=== PATIENT | female | born 1950 | race American Indian/Alaskan Native ===

== ENCOUNTER 2017-06-26 06:14 | Day surgery (SDC) | payer OTHER ==
[2017-06-23 08:39] VITALS: BMI 33.4
[2017-06-26] MEDS ORDERED: Lactated Ringer's 1,000 ML IV ONE (07:01)
--- NOTE | 2017-06-26 07:08 | CP.SDSHP ---
Same Day Surgery H & P - History Proposed Procedure: Right shoulder arthroscopy, possible rotator cuff tear Pre-Op Diagnosis: Right shoulder rotator cuff tear, early DJD GH joint - Previous Medical/Surgical History Cardiac: Hypertension Comments: GERD. medical H&P on chart Dr. Díaz, reviewed, moderate risk Previous Surgical History: colonoscopy, right buttock cyst excision - Allergies Allergies: Allergies No Known Allergies Allergy (Verified 06/23/17 08:38) - Physical Exam Vital Signs: Vital Signs 06/26/17 06/26/17 06:41 06:43 Temperature 98.5 F Pulse Rate 94 H 94 H Respiratory 20 Rate Blood Pressure 129/76 O2 Sat by Pulse 100 Oximetry - {Optional Preform as Required} Ortho: Other (sig limited AROM of right shoulder, sensation intact, +TTP, + radial pulse) Other Pertinent Findings: MRI R shoulder on chart: Moderate tendinosis of the supraspinatous, infra, subscap, partial thickness tear of supra and infraspinatous, traction cystic changes, early DJD glenohumeral joint - Impression Impression: 67F RHD NKDA failed conservative mgmt for right shoulder arthroscopy possible rotator cuff repair Pt. Evaluated Today:Candidate for Anesthesia & Procedure: Yes Short Stay Discharge - Short Stay Discharge Admitting Diagnosis/Reason for Visit: M75.111 Disposition: HOME/ ROUTINE Referrals: Florentino Shah III, MD [Primary Care Provider] -
[2017-06-26] MEDS ORDERED: Propofol 10 mg/ml Inj (20 ML) ONE (07:27)
[2017-06-26] MEDS ORDERED: Midazolam 2 MG/2 ML VIAL ONE (07:28)
[2017-06-26] MEDS ORDERED: Etomidate 20 mg/10ml Inj IV ONE (07:28)
[2017-06-26] MEDS ORDERED: Succinylcholine 200 mg/10 ml Inj IV ONE (07:28)
[2017-06-26] MEDS ORDERED: Lidocaine 4% (Laryng-O-Jet) Kit MM ONE (07:28)
[2017-06-26] MEDS ORDERED: Ropivacaine 0.5% 30ML IV ONE (07:34)
[2017-06-26] MEDS ORDERED: Lidocaine 1% Inj (20ml) ONE (07:42)
[2017-06-26] MEDS ORDERED: Rocuronium 10 mg/ml (5 ml) ONE (08:21)
[2017-06-26] MEDS ORDERED: Sodium Chloride 0.9% 200 ML IV ONE ×2 (08:30)
[2017-06-26] MEDS ORDERED: ePHEDrine 50 mg/ml Inj ONE (08:54)
[2017-06-26] MEDS ORDERED: SODIUM CHLORIDE IV ONE ×2 (09:00→09:10)
[2017-06-26] MEDS ORDERED: EPINEPHRINE IV ONE ×2 (09:00→09:10)
[2017-06-26] MEDS ORDERED: methylPREDNISolone Depo 80 mg/ml Inj ONE (10:05)
[2017-06-26] MEDS ORDERED: Neostigmine Methylsulfate 2 MG/2 ML ML IV ONE (10:11)
[2017-06-26] MEDS ORDERED: Sodium Chloride 0.9% 500 ML IV ONE (10:15)
--- NOTE | 2017-06-26 10:36 | PCM.ANESB1 ---
Interscalene Block - Brachial Plexus Date of Procedure: 06/26/17 Anesthesiologist: Randall Pre-Procedure Diagnosis: Right labral tear Post-Procedure Diagnosis: Same Procedure Performed: Interscalene Block of Brachial Plexus Right - Procedure Interscalene Block of Brachial Plexus: This procedure was explained to the patient that it is for post-operative pain management. Consent was obtained after a thorough discussion with the patient regarding the benefits and possible complications of local anesthetic block of the Brachial Plexus at the Interscalene area. The patient was brought to the Operating Room and standard monitors were applied. Time out was held with the circulating nurse to confirm the correct surgery and appropriate block. After applying Oxygen by nasal cannula and administering IV Sedation, the patient's head was gently rotated away from the ___right___operative shoulder and the anterior scalene groove was carefully palpated. The ultrasound transducer was then applied to the skin in the transverse plane and the brachial plexus was visualized lateral to the carotid artery and in between the anterior and middle scalene muscles. After identification,the anterior lateral portion of the neck was prepped with Betadine solution three times and Lidocaine 1% was injected subcutaneously for topical analgesia. At this point, a # 22 gauge Stimuplex 2 inches insulated needle was inserted into the interscalene groove and directed in a caudal and midline direction. The needle was inserted lateral to the ultrasound transducer in-plane towards the brachial plexus in a [id number] direction. Needle advancement was performed carefully under direct ultrasound visualization. Nerve stimulator was used and twitched of the affected extremity including the hand brachialis muscles, biceps and the deltoid was obtained at a current of __0.4___MA. After repeated negative aspiration,__20___cc of__.5%___, ropivacaine were injected. Under ultrasound guidance the local anesthetics were observed surrounding the roots of the brachial plexus. The needle was removed intact and sterile dressing was applied. The patient had stable vital signs, was conscious and in no apparent distress. The patient tolerated the interscalene block of the bracheal plexus well with stable vital signs and was prepared for subsequent surgery.
[2017-06-26] MEDS ORDERED: HYDROmorphone 0.5 mg/0.5 ml ISec IVP PRN (10:37)
[2017-06-26] MEDS ORDERED: Oxycodone/Acetaminophen 5/325 mg Tab PO PRN (11:28)
[2017-06-26 12:47] VITALS: O2SAT 100
[2017-06-26 13:29] VITALS: BP 110/70; PULSE 86; RESP 18; TEMP 97.8
--- NOTE | 2017-06-26 14:31 | PCM.SURG1 ---
Surgeon's Initial Post Op Note - Surgeon's Notes Surgeon: Alyssa Client Care Manager: SHADY Christine Anesthesia Administered By: DR Pereira Pre-Operative Diagnosis: internal derangement R shoulder Operative Findings: Complex labral tear. avulsion Biceps tendon (long head). bursitis R subacromial space. A/C joint arthropathy. subacromial compression. tear glenoid labrum. avulsion biceps tendon. subacromial bursitis. subacromial impingement. a/c joint arthropathy Post-Operative Diagnosis: same Operation Performed: Arthroscopic labral repair. arthroscopic biceps tenodesis. arthroscopic partial distal claviculectomy. arthroscopic acromioplasty. arthroscopic debridement subacromial space Specimen/Specimens Removed: bone/synovium Estimated Blood Loss: EBL {In ML}: 15 Blood Products Given: N/A Drains Used: No Drains Post-Op Condition: Good Date of Surgery/Procedure: 06/26/17 Time of Surgery/Procedure: 09:00 (time in room 8am/anetsheisa induction time 8 am)
--- NOTE | 2017-06-27 11:27 | OP ---
PROCEDURE DATE: 06/26/2017 PREOPERATIVE DIAGNOSIS: Painful right shoulder. POSTOPERATIVE DIAGNOSES: 1. Tear of glenoid labrum, grade II superior labrum anterior and posterior lesion, extending anterior to posterior to the root of the biceps tendon. 2. Biceps tendon avulsion. 3. Acromioclavicular joint arthritis and glenohumeral arthritis. 4. Adhesions and bursitis in the subacromial space. 5. Subacromial impingement. PROCEDURES: 1. Arthroscopic repair of superior labrum anterior and posterior lesion. 2. Arthroscopic intraarticular biceps tenodesis. 3. Arthroscopic partial distal claviculectomy. 4. Extensive debridement of the glenohumeral joint and partial synovectomy arthroscopically of the glenohumeral joint. 5. Arthroscopic acromioplasty. 6. Arthroscopic debridement, bursectomy, lysis of adhesions in the subacromial space, application of shoulder immobilizer and abduction splint. SURGEON: Florentino Shah MD PODIATRIC FOOT AND ANKLE SPECIALIST: Heather Orta, certified registered nursing service assistant. TYPE OF ANESTHESIA: General and regional anesthesia. ANESTHESIA ADMINISTERED BY: Dr. Robin Pereira. COMPLICATIONS: None. DRAINS: None. OPERATIVE INDICATIONS: Ashley Fuller is a 67-year-old woman who presents to my office with severe pain and restricted range of motion of the right shoulder and has had that discomfort for several months. The patient was refractory to intraarticular injection, activity modification, and therapy. The patient can no longer withstand the discomfort and presents at this time with a positive MRI for arthroscopic shoulder decompression and repair. OPERATIVE PROCEDURE: After having obtained informed consent, after thoroughly discussing the pros, cons, risks, and benefits of the surgical approach, the possibility of mechanical failure, infection, thromboembolic disease, secondary or tertiary surgery, the possibility of later open procedure, the possibility of later shoulder arthroplasty were discussed with the patient and her daughter and her granddaughter, Beverly. Informed consent had been obtained in the office. PROCEDURE IN DETAIL: After having obtained informed consent in the above fashion, after satisfactory induction of general and regional anesthesia by Dr. Robin Pereira, after having identified side, site and procedure, a critical pause/timeout, the right upper extremity was prepped and free-draped in the usual fashion for upper extremity surgery. The topographic anatomy of the shoulder was marked, the spine of the scapula and the lateral aspect of the acromion and coracoid process. This having been accomplished, after sterilely prepping and draping, after having identified side, site, and procedure and a critical pause/timeout, after the satisfactory induction of the anesthetic, the topographic anatomy of the shoulder was marked. The joint was insufflated with 10 mL of 1% lidocaine without epinephrine using #11 blade, followed by spreading, followed by introduction of the blunt trocar, portal was accomplished one thumbs breadth inferior to the lateral aspect of the acromion and one thumbs breadth medial. The joint was entered with a straight hemostat. The arthroscope was introduced. Examination of the joint reveals an arthritic joint with evidence of synovitis and a glenoid labral tear. Triangulation was accomplished using #18 gauge spinal needle, followed by #11 blade, followed by spreading, followed by introduction of blunt trocar. With the arthroscope posteriorly, using #11 blade anteriorly, again taking great care to stay lateral to the coracoid process, using #11 blade, following by spreading, followed by introduction of the Wissinger lelia, the cannula was introduced. With the arthroscope posteriorly and the cannula anteriorly, the arthroscopic shaver was introduced and a third debridement of the glenohumeral joint was accomplished. A chondroplasty of the glenoid was accomplished using the 3.4 mm Dyonics suction punch and the arthroscopic shaver. With the arthroscope posteriorly, extensive debridement of the glenohumeral joint was accomplished. At this point in time, having debrided the joint and having performed a partial synovectomy of the glenohumeral joint, the tear of the glenoid labrum extending to the root of the biceps tendon was identified. Please refer to the video photographs. The biceps tendon anchor was found to be unstable as well. Triangulation was accomplished posterolaterally using #18 gauge spinal needle, followed by #11 blade, followed by spreading with the arthroscope posteriorly. The nitinol wire was removed posteriorly after the arthroscopic lasso was placed around the tear. The tear had been developed using the elevator, the rasp, and the 3.4 mm Dyonics suction punch. This having been accomplished, the lasso was placed anteriorly, the nitinol wire was brought out posteriorly and the FiberTape was brought out anteriorly as well, capturing the glenoid labral tear. Drilling was accomplished followed by introduction of the obturator, followed by inserting the PushLock, which had been loaded with the fiber braid. The position was found to be acceptable. At this point in time, attention was turned to the biceps tendon instability. The lasso was placed at the base of the biceps tendon. The nitinol wire was brought out posteriorly and the fiber braid was again loaded. The avulsion of the biceps tendon was captured. Drilling was accomplished at approximately the 11:30 to 12 o'clock position, followed by loading of the PushLock anchor and insertion of the PushLock anchor. In this way, effectively, an intraarticular biceps tenodesis was accomplished. A third anchor was placed to secure the SLAP lesion and this was accomplished in the same fashion. Lasso gathers the tear, please refer to the video photographs. Nitinol wire was brought out posteriorly. The fiber braid was placed and brought out anteriorly. Drilling was accomplished and the PushLock was introduced. This having been accomplished, third debridement of the glenohumeral joint was accomplished. Third debridement of the glenohumeral joint having been accomplished, a chondroplasty having been accomplished, the wound was thoroughly irrigated. Extensive debridement of the glenohumeral joint was accomplished. With the arthroscope posteriorly, using the 3.4 mm Moogi suction punch, all chondral damages were identified. With the arthroscope posteriorly, aggressive debridement of the glenohumeral joint was accomplished. This having been accomplished, partial synovectomy having been accomplished, the wound was thoroughly irrigated and attention was now turned to the subacromial space. A mid lateral portal in the fashion described as so called [place] portal was accomplished using #18-gauge spinal needle, followed by #11 blade, followed by spreading. The arm was placed in dependency in the shoulder positioner. With the arthroscope posteriorly, an extensive debridement and lysis of adhesions were accomplished using the arthroscopic shaver and the Jenifer SERFAS wand. The patient has a great deal of adhesions and bursitis in the subacromial space. This having been accomplished, with the arthroscope posteriorly, the kylie was placed mid laterally and a careful partial acromioplasty was accomplished. The patient does have a hooked acromion, which causes rotator cuff tendinosis and extensive bursitis in the subacromial space. Again, the subacromial space was thoroughly debrided. Partial bursectomy and debridement of the subacromial space were accomplished. Bleeding points were controlled with the Jenifer SERFAS wand. The arthroscope was now placed mid laterally, the acromioclavicular joint is identified. There was found to be evidence of arthritic change. With the arthroscope mid laterally and with the kylie anteriorly and then with the arthroscope posterolaterally and with the kylie mid laterally, a careful partial distal claviculectomy was accomplished using the arthroscopic kylie to include the distal 1 cm of the clavicle to include the articular surface. Great care was taken to remove any bony spicules. The wound was thoroughly irrigated. Extensive debridement again was accomplished in the subacromial space. Bleeding points were controlled with the [place] SERFAS wand. Further debridement of the acromion was accomplished. The wound was thoroughly irrigated and closure was in layers with interrupted Vicryl and nylon. Intraarticular Depo-Medrol was accomplished. A scalene block was offered. Laith-Ye compression dressing and [facility] was applied. Florentino Shah MD
== END 2017-06-26 13:30 | disposition home or self-care (01) ==
LOC: H.OPSURG 06:14
PROVIDERS: ATTEND Orthopaedic Surgery
DX: M13.811 Other specified arthritis, right shoulder (principal); M75.01 Adhesive capsulitis of right shoulder; M75.51 Bursitis of right shoulder; M75.41 Impingement syndrome of right shoulder; M25.811 Other specified joint disorders, right shoulder; I10 Essential (primary) hypertension; K21.9 Gastro-esophageal reflux disease without esophagitis
CPT/HCPCS: 29807; 29820; 29823; 29824; 29825; 64415; 88304; 88307; J0171; J0330; J0690; J1040; J2001; J2250; J2704; J2710; J3010; J7030; J7040; J7120; L3650